=== PATIENT | female | born 1945 | race African-American/Black ===

== ENCOUNTER 2016-10-09 11:51 | Inpatient (IN) | payer MEDICARE ==
[~2016-10-09] VITALS: Ht 165.1 cm; Wt 65.8 kg
[2016-10-09] MEDS ORDERED: SITA100T PO (12:12)
[2016-10-09] MEDS ORDERED: VALS160T24 PO (12:12)
[2016-10-09] MEDS ORDERED: CARV6.252 PO (12:12)
[2016-10-09] MEDS ORDERED: QUET50TA22 PO (12:14)
[2016-10-09] MEDS ORDERED: DIVA250T6 PO (12:14)
[2016-10-09] MEDS ORDERED: DIGO125T PO (12:14)
[2016-10-09] MEDS ORDERED: AMIO100T4 PO (12:17)
[2016-10-09] MEDS ORDERED: TRAZ-147 PO (12:17)
[2016-10-09] MEDS ORDERED: AMLO2.5T PO (12:17)
[2016-10-09] MEDS ORDERED: APIX2.5T PO (12:20)
[2016-10-09] MEDS ORDERED: NITR0.4T48 SL (12:20)
[2016-10-09] MEDS ORDERED: ASPIRIN 81 MG TAB.CHEW PO ONE (12:30)
[2016-10-09] MEDS ORDERED: ASPIRIN 81 MG TAB.CHEW ONE (12:44)
--- NOTE | 2016-10-09 12:55 | NUR ---
Patient is resting comfortably on gurney while watching bedside TV. PATIENT IS PAIN FREE AT THIS TIME.
[2016-10-09 13:13] LABS: BASOPHILS % (AUTO) 0.4 % (0.0-2.0); EOSINOPHILS # (AUTO) 1.3 K/uL (0.0-0.7); HEMATOCRIT 40.6 % (37-47); HEMOGLOBIN 13.1 G/DL (12.0-16.0); LYMPHOCYTES # (AUTO) 1.8 K/UL (0.8-4.8); LYMPHOCYTES % (AUTO) 16.8 % (20.5-51.5); MEAN CORPUSCULAR HEMOGLOBIN 30.5 UUG (27.0-31.0); MEAN CORPUSCULAR HGB CONC 32 g/dL (32.0-37.0); MEAN CORPUSCULAR VOLUME 94.2 FL (81.0-99.0); MONOCYTES # (AUTO) 0.8 K/UL (0.1-1.30); MONOCYTES % (AUTO) 7.4 % (0.0-11.0); NEUTROPHILS # (AUTO) 6.6 K/UL (1.8-8.9); NEUTROPHILS % (AUTO) 63.4 % (38.5-71.5); PLATELET COUNT (AUTO) 117 K/UL (150-450); RED BLOOD CELL COUNT(AUTO) 4.31 MIL/UL (4.2-5.4); WHITE BLOOD COUNT (AUTO) 10.5 K/UL (4.0-11.2)
[2016-10-09 13:18] LABS: CARBON DIOXIDE 23 mmol/L (21-32); CHLORIDE 103 mmol/L (98-107); CREATININE 1.1 mg/dL (0.6-1.3); GLUCOSE 79 mg/dL (74-106); POTASSIUM 3.4 mmol/L (3.5-5.1); UREA NITROGEN, BLOOD 24 mg/dL (7-18)
--- NOTE | 2016-10-09 14:04 | NUR ---
Patient prefers 2 RANCH dressing to her salads, dietary office notified.
--- NOTE | 2016-10-09 14:05 | NUR ---
Patient is now eating her preferred lunch consisting of salads without tomatoes & ranch dressing, still denies chest pains at this time
--- NOTE | 2016-10-09 14:26 | NUR ---
NIDHI Brizuela is at bedside evaluating the patient.
[2016-10-09] MEDS ORDERED: FUROSEMIDE 20 MG/2 ML VIAL IV ONE (14:30)
[2016-10-09] MEDS ORDERED: ACETAMINOPHEN 325 MG TABLET PO PRN (14:45)
[2016-10-09] MEDS ORDERED: ONDANSETRON 4 MG/2 ML VIAL IV PRN (14:45)
[2016-10-09] MEDS ORDERED: NITROGLYCERIN 0.4 MG/TAB BOTTLE SL PRN (14:45)
[2016-10-09] MEDS ORDERED: MORPHINE SULFATE 2 MG/1 ML DISP.SYRIN IV PRN (14:45)
[2016-10-09] MEDS ORDERED: DEXTROSE 50% 50 ML DISP.SYRIN IV PRN (15:00)
[2016-10-09] MEDS ORDERED: POTASSIUM CHLORIDE 20 MEQ TAB.PRT.SR PO ONE (15:00)
[2016-10-09] MEDS ORDERED: INSULIN REGULAR, HUMAN 300 UNIT/3 ML VIAL SQ PRN (15:00)
[2016-10-09 15:03] VITALS: BP 135/76
[2016-10-09 15:29] LABS: BILIRUBIN,DIRECT 0.1 mg/dL (0.0-0.2); BILIRUBIN,TOTAL 0.6 mg/dL (0.2-1.0); TOTAL PROTEIN, SERUM 7.5 g/dL (6.4-8.2)
--- NOTE | 2016-10-09 16:01 | NUR ---
UPON ENTRY TO ROOM, PT VERY PLEASANT BUT POOR HISTORIAN. IN NO ACUTE DISTRESS, DENIES CHEST PAIN AT THIS TIME. DENIES BEING DIABETIC OR HAVING HIGH BLOOD PRESSURE HOWEVER HOME MEDICATIONS SHOW OTHERWISE. PACING ON THE TELE MONITOR, ORIENTED TO ROOM, BED ALARM ON, CALL LIGHT IN REACH. ADMITTING ORDERS RECEIVED, WILL CONTINUE TO MONITOR
[2016-10-09] MEDS: BLOOD SUGAR DIAGNOSTIC 1 EACH STRIP VI SCH ×2 (16:23→20:39)
[2016-10-09] MEDS ORDERED: Medication Not On Formulary EA (Apixaban (Eliquis) 2.5 MG) PO SCH (17:00)
[2016-10-09] MEDS ORDERED: APIXABAN 5 MG TABLET PO SCH (17:00)
[2016-10-09] MEDS: VALSARTAN 160 MG TABLET PO SCH (17:56)
[2016-10-09] MEDS: CARVEDILOL 6.25 MG TABLET PO SCH (17:57)
[2016-10-09] MEDS: ATORVASTATIN 40 MG TABLET PO SCH (20:05)
[2016-10-09] MEDS: DIVALPROEX 250 MG TABLET.DR PO SCH (20:05)
[2016-10-09] MEDS: FUROSEMIDE 20 MG/2 ML VIAL IV SCH (20:05)
--- NOTE | 2016-10-09 20:11 | NUR ---
PATIENT TROPONIN LEVEL O.522, PATIENT ASYMPTOMATIC, BP 112/65. HR 66, OXYGEN SAT 95%, T-88.4 O, PAGE DR. GAMEZ, AWAITING FOR RESPONSE. CONT TO MONITOR.
[2016-10-09 20:40] VITALS: BP 112/65
--- NOTE | 2016-10-09 20:40 | NUR ---
PLACE A CALL AGAIN IN EXCHANGE, SPOKE TO VERA SLATER VAHAN, NOTIFY TROPONIN IS 0.522 AND HAS NO NEW ORDER, CONTINUE TO MONITOR, PATIENT AWAKE, SKIN WARM AND DRY TO TOUCH, NO CHEST PAIN, SOB ON EXCERTION, GIVEN OXYGEN 2LITER NC, NO S/S OF DISTRESS, CONT TO MONITOR.
[2016-10-09] MEDS ORDERED: QUETIAPINE FUMARATE 50 MG PO SCH (21:00)
[2016-10-09] MEDS ORDERED: QUETIAPINE FUMARATE 25 MG TABLET PO SCH (21:00)
[2016-10-09] MEDS ORDERED: TRAZODONE 100 MG TABLET PO SCH (21:00)
[2016-10-10] VITALS: BP 125/73
--- NOTE | 2016-10-10 01:30 | NUR ---
TROPONIN LEVEL 0.482 TRENDING DOWN, DR. ESPINOZA NOTIFIED NO NEW ORDER, CONT TO MONITOR.
[2016-10-10 04:00] VITALS: BP 122/53
--- NOTE | 2016-10-10 05:52 | NUR ---
PATIENT SLEPT MOST OF THE NIGHT, NO SOB NO CHEST PAIN, RYTHM V PACING AT THIS TIME, ASSISTED WITH TOILETING, URINATE IN THE COMMODE, ASSISTED WITH [facility], NO S/S OF HYPO/HYPERGLYCEMIA NOTED, CALL LIGHT WITHIN REACH.
[2016-10-10] MEDS: BLOOD SUGAR DIAGNOSTIC 1 EACH STRIP VI SCH ×4 (05:56→21:27)
[2016-10-10 06:49] LABS: BASOPHILS % (AUTO) 0.5 % (0.0-2.0); EOSINOPHILS # (AUTO) 1.6 K/uL (0.0-0.7); EOSINOPHILS % (AUTO) 19.5 % (0.0-7.0); HEMATOCRIT 41.9 % (37-47); HEMOGLOBIN 14.1 G/DL (12.0-16.0); LYMPHOCYTES # (AUTO) 1.6 K/UL (0.8-4.8); LYMPHOCYTES % (AUTO) 19.4 % (20.5-51.5); MEAN CORPUSCULAR HEMOGLOBIN 31.6 UUG (27.0-31.0); MEAN CORPUSCULAR HGB CONC 34 g/dL (32.0-37.0); MEAN CORPUSCULAR VOLUME 93.9 FL (81.0-99.0); MONOCYTES # (AUTO) 0.8 K/UL (0.1-1.30); MONOCYTES % (AUTO) 9.1 % (0.0-11.0); NEUTROPHILS # (AUTO) 4.4 K/UL (1.8-8.9); NEUTROPHILS % (AUTO) 51.5 % (38.5-71.5); PLATELET COUNT (AUTO) 132 K/UL (150-450); RED BLOOD CELL COUNT(AUTO) 4.46 MIL/UL (4.2-5.4); WHITE BLOOD COUNT (AUTO) 8.4 K/UL (4.0-11.2)
[2016-10-10 07:17] LABS: ALANINE AMINOTRANSFERASE 18 U/L (14-59); ALKALINE PHOSPHATASE 82 U/L (50-136); ASPARTATE AMINOTRANSFERASE 19 U/L (15-37); BILIRUBIN,TOTAL 0.6 mg/dL (0.2-1.0); CARBON DIOXIDE 28 mmol/L (21-32); CHLORIDE 105 mmol/L (98-107); CREATININE 1.5 mg/dL (0.6-1.3); DIGOXIN 0.2 ng/mL (0.9-2.0); GLUCOSE 92 mg/dL (74-106); MAGNESIUM 1.8 mg/dL (1.8-2.4); PHOSPHOROUS 4.4 mg/dL (2.5-4.9); POTASSIUM 3.7 mmol/L (3.5-5.1); TOTAL PROTEIN, SERUM 7.6 g/dL (6.4-8.2); UREA NITROGEN, BLOOD 29 mg/dL (7-18)
[2016-10-10 07:22] LABS: THYROID STIMULATING HORMONE 4.865 mIU/mL (0.358-3.740)
[2016-10-10] MEDS: CARVEDILOL 6.25 MG TABLET PO SCH ×2 (08:00→17:31)
--- NOTE | 2016-10-10 08:30 | NUR ---
awake alert oriented x3 but a little slow to comprehend, denies of pain, no shortness of breath noted, Tele V paced 65, explained plan of cre- verbalized understanding, med instructions given- understood, safety measures maintained, bed alarm on and call light within reach
[2016-10-10 08:47] LABS: CHOLESTEROL 123 mg/dL (<200); HDL CHOLESTEROL 53 mg/dL (40-60); TRIGLYCERIDES 41 MG/DL (30-150)
[2016-10-10] MEDS: VALSARTAN 160 MG TABLET PO SCH ×2 (09:00→17:00)
[2016-10-10] MEDS ORDERED: Medication Not On Formulary EA (Sitagliptin Phosphate (Januvia) 100 MG) PO SCH (09:00)
[2016-10-10] MEDS: AMLODIPINE 2.5 MG TABLET PO SCH (09:00)
[2016-10-10] MEDS: FUROSEMIDE 20 MG/2 ML VIAL IV SCH (09:03)
[2016-10-10] MEDS: DIGOXIN 125 MCG TABLET PO SCH (09:03)
[2016-10-10] MEDS: LINAGLIPTIN 5 MG TABLET PO SCH (09:03)
[2016-10-10] MEDS: PANTOPRAZOLE SODIUM 40 MG TABLET.DR PO SCH (09:04)
[2016-10-10] MEDS: AMIODARONE HCL 200 MG TABLET PO SCH (09:04)
[2016-10-10] MEDS: ASPIRIN EC 81 MG TABLET.DR PO SCH (09:04)
[2016-10-10] MEDS: DIVALPROEX 250 MG TABLET.DR PO SCH ×2 (09:04→21:00)
[2016-10-10] MEDS: NICOTINE 21 MG/24HR PATCH TD SCH (09:06)
[2016-10-10 11:21] VITALS: BP 102/65
--- NOTE | 2016-10-10 12:00 | NUR ---
UP IN CHAIR -TOLERATED WELL
[2016-10-10 15:23] VITALS: BP 95/54
--- NOTE | 2016-10-10 16:00 | NUR ---
SEEN BY DR GAMEZ -
--- NOTE | 2016-10-10 18:31 | NUR ---
sitting up in chair- denies of chest pain, no shortness of breath, tele v paced- all needs attended and met, safety measures maintained, call light within reach
--- NOTE | 2016-10-10 19:20 | NUR ---
Bedside reporting with KAVEH Latham. Patient in bed, appears sleeping but easily arousable when name called. Denies any pain/discomforts at this time. Continue care as planned.
[2016-10-10 20:00] VITALS: BP 98/48
[2016-10-10] MEDS: ATORVASTATIN 40 MG TABLET PO SCH (21:00)
[2016-10-11 00:37] VITALS: BP 108/62
--- NOTE | 2016-10-11 05:24 | NUR ---
Patient verbalized concern about the scheduled procedure, claiming that she needs clarification, explanation and how does it affect her. Instructed patient that MD will explain to her.
--- NOTE | 2016-10-11 06:30 | NUR ---
Patient refused accu check at this time claiming that she is not diabetic. Charge Nurse aware.
[2016-10-11 06:43] VITALS: BP 131/79
[2016-10-11] MEDS: BLOOD SUGAR DIAGNOSTIC 1 EACH STRIP VI SCH (07:30)
--- NOTE | 2016-10-11 07:30 | NUR ---
RECIEVED PT SITTING UP AT EDGE OF THE BED. AWAKE, ALERT BUT VERY FORGETFUL, KNOWS HER NAME AND EASILY FORGETS THE PRESENT SCENARIO. 07.30 PT INSTRUCTED TO BE NOTHING BY MOUTH AFTER BREAKFAST. BLOOD CHEMISTRY NOT YET DRAWN. PT IS UP AND ABOUT. HR IS AVPACED WITH UNDERLYING ATRIAL FIBRILLATION. NO APPARENT CHEST PAINS NOTED.
[2016-10-11] MEDS: AMIODARONE HCL 200 MG TABLET PO SCH (09:00)
[2016-10-11] MEDS: DIGOXIN 125 MCG TABLET PO SCH (09:00)
--- NOTE | 2016-10-11 09:00 | NUR ---
PT'S HR IS BELOW 60. HELD AMIODARONE AND DIGOXIN MEDICATION AND DR BARRETT IS AWARE.
[2016-10-11 09:29] LABS: CARBON DIOXIDE 26 mmol/L (21-32); CHLORIDE 105 mmol/L (98-107); CREATININE 1.6 mg/dL (0.6-1.3); GLUCOSE 149 mg/dL (74-106); POTASSIUM 4.5 mmol/L (3.5-5.1); UREA NITROGEN, BLOOD 33 mg/dL (7-18)
--- NOTE | 2016-10-11 09:30 | NUR ---
PT REFUSED TO WORK WITH PHYSICAL THERAPIST. PT AMBULATES AROUND BY HERSELF.
[2016-10-11] MEDS: VALSARTAN 160 MG TABLET PO SCH ×2 (09:40→17:02)
[2016-10-11] MEDS: DIVALPROEX 250 MG TABLET.DR PO SCH ×2 (09:40→20:39)
[2016-10-11] MEDS: ASPIRIN EC 81 MG TABLET.DR PO SCH (09:40)
[2016-10-11] MEDS: AMLODIPINE 2.5 MG TABLET PO SCH (09:40)
[2016-10-11] MEDS: LINAGLIPTIN 5 MG TABLET PO SCH (09:41)
[2016-10-11] MEDS: NICOTINE 21 MG/24HR PATCH TD SCH (09:43)
[2016-10-11] MEDS: CARVEDILOL 6.25 MG TABLET PO SCH ×2 (09:48→17:02)
[2016-10-11 11:22] VITALS: BP 118/71
--- NOTE | 2016-10-11 11:30 | NUR ---
DR SCHMITZ AWARE OF THE CREATININE RESULT. CANCELLED THE HEART CATCH SCHEDULE PROCEDURE TODAY. INFORMED THE PT ABOUT THE STATUS. SEEN AND EXAMINED BY DR CUEVAS WITH NEW ORDERS.
[2016-10-11 12:10] VITALS: BP 110/51
--- NOTE | 2016-10-11 13:00 | NUR ---
PT ATE GOOD LUNCH. AWARE OF THE PLAN FOR TOMORROW. SLEEPING ON AND OFF.
[2016-10-11] MEDS: PANTOPRAZOLE SODIUM 40 MG TABLET.DR PO SCH (14:00)
--- NOTE | 2016-10-11 15:00 | NUR ---
PT IS OFF TELE PER DR GAMEZ.
[2016-10-11 15:41] VITALS: BP 117/78
--- NOTE | 2016-10-11 17:45 | NUR ---
CINDITION IS UNCHANGED. NO C/O CHEST PAINS.
[2016-10-11 20:00] VITALS: BP 101/60
--- NOTE | 2016-10-11 20:00 | NUR ---
Pt received riley in bed. AOx2 forgetful at times. Pt is pleasant upon approach. Denies any pain at this time. No acute distress noted. vital signs wnl. Bed in low and locked position, call light within reach. Will continue to monitor for safety.
[2016-10-11] MEDS: ATORVASTATIN 40 MG TABLET PO SCH (20:39)
[2016-10-12 05:00] VITALS: BP 101/65
[2016-10-12 06:48] LABS: CARBON DIOXIDE 28 mmol/L (21-32); CHLORIDE 107 mmol/L (98-107); CREATININE 1.1 mg/dL (0.6-1.3); GLUCOSE 106 mg/dL (74-106); POTASSIUM 3.7 mmol/L (3.5-5.1); UREA NITROGEN, BLOOD 27 mg/dL (7-18)
--- NOTE | 2016-10-12 07:30 | NUR ---
pt troponin is 1.284 dr frank luo notified
--- NOTE | 2016-10-12 07:30 | NUR ---
Pt received sleeping in bed. AOx2 forgetful at times. Pt is pleasant upon approach. Denies any pain at this time. No acute distress noted. vital signs wnl. Bed in low and locked position, call light within reach. Will continue to monitor for safety.
--- NOTE | 2016-10-12 08:00 | NUR ---
dr ayala notified for pt troponin level is 1.284
[2016-10-12] MEDS: VALSARTAN 160 MG TABLET PO SCH ×2 (08:13→17:00)
[2016-10-12] MEDS: PANTOPRAZOLE SODIUM 40 MG TABLET.DR PO SCH (08:13)
[2016-10-12] MEDS: ASPIRIN EC 81 MG TABLET.DR PO SCH (08:13)
[2016-10-12] MEDS: DIVALPROEX 250 MG TABLET.DR PO SCH ×2 (08:13→20:39)
[2016-10-12] MEDS: LINAGLIPTIN 5 MG TABLET PO SCH (08:13)
[2016-10-12] MEDS: DIGOXIN 125 MCG TABLET PO SCH (08:14)
[2016-10-12] MEDS: AMIODARONE HCL 200 MG TABLET PO SCH (08:14)
[2016-10-12] MEDS: AMLODIPINE 2.5 MG TABLET PO SCH (08:14)
[2016-10-12] MEDS: CARVEDILOL 6.25 MG TABLET PO SCH ×2 (08:14→18:01)
[2016-10-12] MEDS: NICOTINE 21 MG/24HR PATCH TD SCH (08:15)
[2016-10-12 11:44] VITALS: BP 110/62
--- NOTE | 2016-10-12 12:40 | NUR ---
pt troponin level is 1.469,dr ayala notified
[2016-10-12] MEDS ORDERED: HEPARIN/D5W DRIP 500 ML IV PRN (12:45)
--- NOTE | 2016-10-12 12:55 | NUR ---
rn report given to rn josr
--- NOTE | 2016-10-12 12:55 | NUR ---
RECEIVED REPORT FROM [facility], PATIENT IS IN NEED OF HEPARIN DRIP AND BOLUS. PATIENT RECEIVED IN BED AWAKE, WATCHING TV, NO EVIDENCE OF DISTRESS NOTED. HEPARIN CALCULATION PERFORMED WITH PHARMACY REP CARRIE.
[2016-10-12] MEDS ORDERED: HEPARIN SODIUM,PORCINE 5,000 UNITS/ML VIAL SQ PRN (14:00)
[2016-10-12] MEDS ORDERED: HEPARIN SODIUM,PORCINE 5,000 UNITS/ML VIAL SQ ONE ×2 (14:00)
[2016-10-12] MEDS ORDERED: HEPARIN SODIUM,PORCINE 5,000 UNITS/ML VIAL IV PRN (14:15)
[2016-10-12] MEDS ORDERED: HEPARIN SODIUM,PORCINE 5,000 UNITS/ML VIAL IV ONE (14:45)
[2016-10-12 15:38] VITALS: BP 108/61
[2016-10-12 19:00] VITALS: BP 123/60
--- NOTE | 2016-10-12 19:01 | NUR ---
PATIENT HAS BEEN FREQUENTLY AMBULATING BACK AND FORTH TO THE NURSING STATION. NO EVIDENCE OF DISTRESS NOTED IN PATIENT BESIDES SOME MILD PAIN IN IV SITE. SECOND IV SITE OBTAINED IN LEFT FOREARM.
--- NOTE | 2016-10-12 19:45 | NUR ---
Pt received sitting up in bed no acute distress noted. Pt is AOx3 but forgetful at times. Receiving heparin IV drip at 20cc/hr in right forearm, intact and patent. Lungs sounds clear with auscultation. Pt is pacing 100% on tele monitor. Explained to pt regarding ambulance slat pickler tomorrow for heart cath procedure to be done at [facility] per report. Pt is resting comfortably in bed. Call light within reach.
[2016-10-12] MEDS: ATORVASTATIN 40 MG TABLET PO SCH (20:39)
--- NOTE | 2016-10-12 22:00 | NUR ---
Lab results for PTT 95.2, per heparin protocol, heparin IV infusion will be held x1 hour and decreased by 200 units. Pt is AOx3 at this time. Observed moving about room. No s/s bleeding noted. Will continue to monitor for safety. Next scheduled PTT lab draw at 0400.
[2016-10-13 00:12] VITALS: BP 111/69
--- NOTE | 2016-10-13 00:45 | NUR ---
Pt laying in bed sleeping, easily arousable. Pt currently receiving heparin via IV at 800 units, 16cc/hr. Pt tolerating well, no s/s bleeding noted. Will continue to monitor.
[2016-10-13 04:00] VITALS: BP 111/71
--- NOTE | 2016-10-13 05:11 | NUR ---
PT PTT 35.1, PER HEPARIN PROTOCOL HEPARIN INCREASED TO 950UNITS, 19ML/HR. PT ASLEEP IN BED AT THIS TIME, PACING ON TELE MONITOR. NO ACUTE DISTRESS NOTED. WILL CONTINUE TO MONITOR FOR SAFETY.
--- NOTE | 2016-10-13 06:31 | NUR ---
PT CURRENTLY SLEEPING IN BED, EASILY AROUSABLE. RECEIVING HEPARIN 950UNITS, 19ML/HR, NO S/S BLEEDING NOTED. REMAINS ON TELE MONITOR PACING 100%. PT IN NO ACUTE DISTRESS. WILL CONTINUE TO MONITOR FOR SAFETY.
--- NOTE | 2016-10-13 07:20 | NUR ---
RECEIVED REPORT FROM DOCUMENTATION SUPERVISOR NURSE, PATIENT IN BED LIIGHTLY SLEEPING/AROUSABLE, NO EVIDENCE OF DISTRESS NOTED, BED IN LOW POSITION, SIDE RAILS UP X2.
[2016-10-13] MEDS: VALSARTAN 160 MG TABLET PO SCH (08:29)
[2016-10-13] MEDS: AMIODARONE HCL 200 MG TABLET PO SCH (08:30)
[2016-10-13] MEDS: AMLODIPINE 2.5 MG TABLET PO SCH (08:30)
[2016-10-13] MEDS: ASPIRIN EC 81 MG TABLET.DR PO SCH (08:31)
[2016-10-13] MEDS: CARVEDILOL 6.25 MG TABLET PO SCH (08:31)
[2016-10-13] MEDS: DIGOXIN 125 MCG TABLET PO SCH (08:31)
[2016-10-13] MEDS: LINAGLIPTIN 5 MG TABLET PO SCH ×2 (08:32→08:37)
[2016-10-13] MEDS: DIVALPROEX 250 MG TABLET.DR PO SCH (08:32)
[2016-10-13] MEDS: PANTOPRAZOLE SODIUM 40 MG TABLET.DR PO SCH (08:36)
[2016-10-13] MEDS: NICOTINE 21 MG/24HR PATCH TD SCH (08:36)
[2016-10-13 11:27] VITALS: BP 127/72
--- NOTE | 2016-10-13 12:00 | NUR ---
PATIENT'S LEFT ARM BECAME INFILTRATED, IV REMOVED AND WRAP PLACED. PATIENT INSTRUCTED TO ELEVATE EXTREMITY AND WARM PACK OFFERED TO PATIENT, WHICH WAS DECLINED.
--- NOTE | 2016-10-13 13:00 | NUR ---
The patient will be discharged to [facility] [ ; [address] [place] [address]] via [facility]. Spoke to the patient and her system support administrator, Azalea, who agreed with her discharge plan. Benny from [facility] confirmed that they will admit the patient today. The patient has a heart cath scheduled with Dr. Choi at [facility] on 10/17/16 at 15:00. She needs to be at [facility] labor relations supervisor at 13:00. Informed Benny from [facility]. Her RN, Ning, is aware of her discharge plan and will call the facility for the report.
[2016-10-13 15:58] VITALS: BP 105/66
--- NOTE | 2016-10-13 16:43 | NUR ---
PATIENT WAS PICKED UP BY [facility] FOR TRANSPORTATION TO [facility].
[2016-10-19] MEDS ORDERED: PANT40TA2 PO ×2 (14:01→18:15)
[2016-10-19] MEDS ORDERED: SULF1TAB48 PO (14:01)
[2016-10-19] MEDS ORDERED: ATOR20TA PO (14:01)
[2016-10-19] MEDS ORDERED: APIX5TAB PO ×2 (14:01→18:15)
[2016-10-19] MEDS ORDERED: MAGN400O6 PO (14:01)
[2016-10-19] MEDS ORDERED: VALS160T2 PO ×2 (14:01→18:17)
[2016-10-19] MEDS ORDERED: Nitroglycerin Sl SL (14:01)
== END 2016-10-13 16:30 | DRG 280 ==
LOC: ER 11:51 → TELE 14:13 → MED 10-11 13:02 → TELE 10-12 09:00
PROVIDERS: ADMIT Internal Medicine; ATTEND Internal Medicine
DX: I21.4 Non-ST elevation (NSTEMI) myocardial infarction (principal); I50.23 Acute on chronic systolic (congestive) heart failure; N17.9 Acute kidney failure, unspecified; D69.6 Thrombocytopenia, unspecified; E87.1 Hypo-osmolality and hyponatremia; I69.351 Hemiplegia and hemiparesis following cerebral infarction affecting right dominant side; I48.0 Paroxysmal atrial fibrillation; G43.909 Migraine, unspecified, not intractable, without status migrainosus; I11.0 Hypertensive heart disease with heart failure; I25.2 Old myocardial infarction; Z95.1 Presence of aortocoronary bypass graft; Z95.2 Presence of prosthetic heart valve; Z95.810 Presence of automatic (implantable) cardiac defibrillator; I25.5 Ischemic cardiomyopathy; I25.10 Atherosclerotic heart disease of native coronary artery without angina pectoris; F17.210 Nicotine dependence, cigarettes, uncomplicated; E87.6 Hypokalemia; E11.9 Type 2 diabetes mellitus without complications; Z79.01 Long term (current) use of anticoagulants; S50.12XA Contusion of left forearm, initial encounter; X58.XXXA Exposure to other specified factors, initial encounter; Y93.9 Activity, unspecified; Y92.89 Other specified places as the place of occurrence of the external cause
CPT/HCPCS: 36415; 70030-TC; 71010; 83735; 84100; 84443; 85025; 85730; 93005; 93307; 97116; 97530; A4663; J1644; J1815; J1940; J3490; J7040

== ENCOUNTER 2016-10-16 12:33 | Inpatient (IN) | payer MEDICARE ==
[~2016-10-16] VITALS: Ht 165.1 cm; Wt 65.8 kg
[~2016-10-16 12:33] MED LIST: AMIO100T4 PO; AMLO2.5T PO; APIX2.5T PO; CARV6.252 PO; DIGO125T PO; DIVA250T6 PO; NITR0.4T48 SL; QUET50TA22 PO; SITA100T PO; TRAZ-147 PO; VALS160T24 PO
[2016-10-16] MEDS ORDERED: LINA5TAB PO (13:28)
[2016-10-16] MEDS ORDERED: BISA10SU8 RC (13:28)
[2016-10-16] MEDS ORDERED: NICO1PAT25 TP (13:28)
[2016-10-16] MEDS ORDERED: ACET-2154 PO (13:28)
[2016-10-16] MEDS ORDERED: ASPI81TA31 PO (13:28)
[2016-10-16] MEDS ORDERED: CLOP75TA15 PO (13:28)
[2016-10-16] MEDS ORDERED: ACET-73 PO (13:28)
[2016-10-16] MEDS ORDERED: DIVA250T4 PO (13:28)
[2016-10-16] MEDS ORDERED: MAGN400O6 PO (13:28)
[2016-10-16] MEDS ORDERED: ATOR40TA PO (13:28)
[2016-10-16] MEDS ORDERED: PANT40TA2 PO (13:28)
[2016-10-16] MEDS ORDERED: NA P133E RC (13:28)
[2016-10-16 14:05] LABS: BASOPHILS # (AUTO) 0.1 K/uL (0.0-8.0); BASOPHILS % (AUTO) 0.6 % (0.0-2.0); EOSINOPHILS # (AUTO) 1.5 K/uL (0.0-0.7); EOSINOPHILS % (AUTO) 15.1 % (0.0-7.0); HEMATOCRIT 41.6 % (37-47); HEMOGLOBIN 13.8 G/DL (12.0-16.0); LYMPHOCYTES # (AUTO) 1.7 K/UL (0.8-4.8); MEAN CORPUSCULAR HEMOGLOBIN 31.3 UUG (27.0-31.0); MEAN CORPUSCULAR HGB CONC 33 g/dL (32.0-37.0); MEAN CORPUSCULAR VOLUME 94.5 FL (81.0-99.0); MONOCYTES # (AUTO) 0.7 K/UL (0.1-1.30); MONOCYTES % (AUTO) 6.9 % (0.0-11.0); NEUTROPHILS # (AUTO) 5.8 K/UL (1.8-8.9); NEUTROPHILS % (AUTO) 60.4 % (38.5-71.5); PLATELET COUNT (AUTO) 146 K/UL (150-450); RED BLOOD CELL COUNT(AUTO) 4.41 MIL/UL (4.2-5.4); WHITE BLOOD COUNT (AUTO) 9.8 K/UL (4.0-11.2)
[2016-10-16 14:21] LABS: CARBON DIOXIDE 27 mmol/L (21-32); CHLORIDE 105 mmol/L (98-107); CREATININE 1.3 mg/dL (0.6-1.3); GLUCOSE 122 mg/dL (74-106); UREA NITROGEN, BLOOD 40 mg/dL (7-18)
[2016-10-16 14:33] LABS: ALANINE AMINOTRANSFERASE 21 U/L (14-59); ALKALINE PHOSPHATASE 100 U/L (50-136); ASPARTATE AMINOTRANSFERASE 17 U/L (15-37); BILIRUBIN,DIRECT 0.1 mg/dL (0.0-0.2); BILIRUBIN,TOTAL 0.3 mg/dL (0.2-1.0)
[2016-10-16 16:53] VITALS: BP 144/68
[2016-10-17 05:47] VITALS: BP 140/62
[2016-10-17 06:27] LABS: BASOPHILS % (AUTO) 0.5 % (0.0-2.0); EOSINOPHILS # (AUTO) 1.7 K/uL (0.0-0.7); EOSINOPHILS % (AUTO) 18.7 % (0.0-7.0); HEMATOCRIT 39.4 % (37-47); LYMPHOCYTES # (AUTO) 2.2 K/UL (0.8-4.8); LYMPHOCYTES % (AUTO) 24.2 % (20.5-51.5); MEAN CORPUSCULAR HGB CONC 33 g/dL (32.0-37.0); MEAN CORPUSCULAR VOLUME 93.7 FL (81.0-99.0); MONOCYTES % (AUTO) 10.8 % (0.0-11.0); NEUTROPHILS % (AUTO) 45.8 % (38.5-71.5); PLATELET COUNT (AUTO) 142 K/UL (150-450); WHITE BLOOD COUNT (AUTO) 8.9 K/UL (4.0-11.2)
[2016-10-17 06:44] LABS: AMYLASE 150 U/L (25-115); CARBON DIOXIDE 26 mmol/L (21-32); CHLORIDE 109 mmol/L (98-107); CREATININE 1.2 mg/dL (0.6-1.3); GLUCOSE 83 mg/dL (74-106); LIPASE 132 U/L (73-393); MAGNESIUM 2.1 mg/dL (1.8-2.4); PHOSPHOROUS 3.8 mg/dL (2.5-4.9); POTASSIUM 3.8 mmol/L (3.5-5.1); UREA NITROGEN, BLOOD 30 mg/dL (7-18)
[2016-10-17 07:27] LABS: CHOLESTEROL 107 mg/dL (<200); HDL CHOLESTEROL 54 mg/dL (40-60); TRIGLYCERIDES 39 MG/DL (30-150)
[2016-10-17 11:21] VITALS: BP 126/66
[2016-10-17 17:00] VITALS: BP 138/76
[2016-10-17 20:00] VITALS: BP 129/76
[2016-10-18] VITALS (7 sets, daily range): BP systolic 115–134; BP diastolic 61–76
[2016-10-18 06:24] LABS: BASOPHILS # (AUTO) 0.1 K/uL (0.0-8.0); BASOPHILS % (AUTO) 0.6 % (0.0-2.0); EOSINOPHILS # (AUTO) 1.7 K/uL (0.0-0.7); EOSINOPHILS % (AUTO) 16.9 % (0.0-7.0); HEMATOCRIT 42.3 % (37-47); HEMOGLOBIN 13.8 G/DL (12.0-16.0); LYMPHOCYTES # (AUTO) 2.1 K/UL (0.8-4.8); LYMPHOCYTES % (AUTO) 20.8 % (20.5-51.5); MEAN CORPUSCULAR HEMOGLOBIN 30.8 UUG (27.0-31.0); MEAN CORPUSCULAR HGB CONC 33 g/dL (32.0-37.0); MEAN CORPUSCULAR VOLUME 94.6 FL (81.0-99.0); MONOCYTES # (AUTO) 1.2 K/UL (0.1-1.30); MONOCYTES % (AUTO) 12.6 % (0.0-11.0); NEUTROPHILS # (AUTO) 4.8 K/UL (1.8-8.9); NEUTROPHILS % (AUTO) 49.1 % (38.5-71.5); PLATELET COUNT (AUTO) 143 K/UL (150-450); RED BLOOD CELL COUNT(AUTO) 4.47 MIL/UL (4.2-5.4); WHITE BLOOD COUNT (AUTO) 9.9 K/UL (4.0-11.2)
[2016-10-18 06:39] LABS: ALANINE AMINOTRANSFERASE 20 U/L (14-59); ALKALINE PHOSPHATASE 83 U/L (50-136); ASPARTATE AMINOTRANSFERASE 25 U/L (15-37); BILIRUBIN,TOTAL 0.7 mg/dL (0.2-1.0); CARBON DIOXIDE 27 mmol/L (21-32); CHLORIDE 108 mmol/L (98-107); CREATININE 1.1 mg/dL (0.6-1.3); GLUCOSE 77 mg/dL (74-106); MAGNESIUM 2.1 mg/dL (1.8-2.4); PHOSPHOROUS 3.5 mg/dL (2.5-4.9); POTASSIUM 3.6 mmol/L (3.5-5.1); TOTAL PROTEIN, SERUM 7.5 g/dL (6.4-8.2); UREA NITROGEN, BLOOD 21 mg/dL (7-18)
[2016-10-18 22:22] LABS: *BILIRUBIN,URIN NEGATIVE (NEGATIVE); *BLOOD, URINE NEGATIVE (NEGATIVE); *COLOR,URINE YELLOW (YELLOW); *KETONES,URINE NEGATIVE (NEGATIVE); *PROTEIN,URINE NEGATIVE (NEGATIVE); *UROBILINOGEN,URINE 0.2 E.U./dl (NORMAL); LEUKOCYTE ESTERASE ,URINE 1+ (NEGATIVE); NITRITE, URINE NEGATIVE (NEGATIVE); UGLUCOSE NEGATIVE (NEGATIVE)
[2016-10-18 22:34] LABS: *CLARITY,URINE HAZY (CLEAR)
[2016-10-18 22:35] LABS: BACTERIA,URINE MODERATE /HPF (NONE SEEN); SQUAMOUS EPITHELIAL CELL,UR MANY /HPF (NONE SEEN)
[2016-10-19 04:53] VITALS: BP 108/60
[2016-10-19 10:00] VITALS: BP 111/62
[2016-10-19] MEDS ORDERED: PANT40TA2 PO ×2 (14:01→18:15)
[2016-10-19] MEDS ORDERED: MAGN400O6 PO (14:01)
[2016-10-19] MEDS ORDERED: ATOR20TA PO (14:01)
[2016-10-19] MEDS ORDERED: APIX5TAB PO ×2 (14:01→18:15)
[2016-10-19] MEDS ORDERED: VALS160T2 PO ×2 (14:01→18:17)
[2016-10-19] MEDS ORDERED: SULF1TAB48 PO (14:01)
[2016-10-19] MEDS ORDERED: Nitroglycerin Sl SL (14:01)
[2016-10-19 15:40] VITALS: BP 110/68
[2016-10-19] MEDS ORDERED: NICO1PAT25 TP (18:15)
[2016-10-19] MEDS ORDERED: ATOR40TA PO (18:15)
[2016-10-19] MEDS ORDERED: CLOP75TA15 PO (18:15)
[2016-10-19] MEDS ORDERED: NITR0.4T48 SL (18:15)
== END 2016-10-19 17:00 | DRG 280 ==
LOC: ER 12:37 → TELE 15:31 → MED 10-18 21:28
DX: I21.4 Non-ST elevation (NSTEMI) myocardial infarction (principal); I50.23 Acute on chronic systolic (congestive) heart failure; N17.9 Acute kidney failure, unspecified; D68.59 Other primary thrombophilia; F03.90 Unspecified dementia, unspecified severity, without behavioral disturbance, psychotic disturbance, mood disturbance, and anxiety; I48.0 Paroxysmal atrial fibrillation; F32.3 Major depressive disorder, single episode, severe with psychotic features; G43.909 Migraine, unspecified, not intractable, without status migrainosus; I69.351 Hemiplegia and hemiparesis following cerebral infarction affecting right dominant side; N39.0 Urinary tract infection, site not specified; I69.851 Hemiplegia and hemiparesis following other cerebrovascular disease affecting right dominant side; D69.6 Thrombocytopenia, unspecified; I11.0 Hypertensive heart disease with heart failure; E11.9 Type 2 diabetes mellitus without complications; F17.210 Nicotine dependence, cigarettes, uncomplicated; Z79.01 Long term (current) use of anticoagulants; Z95.1 Presence of aortocoronary bypass graft; Z95.810 Presence of automatic (implantable) cardiac defibrillator; F41.9 Anxiety disorder, unspecified; I25.10 Atherosclerotic heart disease of native coronary artery without angina pectoris; I25.5 Ischemic cardiomyopathy; Z79.899 Other long term (current) drug therapy
CPT/HCPCS: 36415; 70030-TC; 71010; 83690; 83735; 84100; 85025; 85610; 85730; 93005; A4663; J0696; J2060; J2270; J3490; J7050; J7060

== ENCOUNTER 2016-10-19 17:06 | Inpatient (IN) | payer MEDICARE ==
[~2016-10-19] VITALS: Ht 154.9 cm; Wt 66.7 kg
[2016-10-19 16:50] VITALS: BP 167/83
--- NOTE | 2016-10-19 17:00 | NUR ---
PT RECEIVED FROM MED SURG FLOOR AT 1645. PT IS ON 5150 EXPIRING 10/19/16 AT 1745. PT IS FORGETFUL AND DISORIENTED. ORIGINALLY PT STATED THAT IT'S 2020, BUT THEN SHE REMEMBERED THE DATE. PT DENIES THE NEED TO BE HERE. PT STATES SHE LIVES WITH HER FRIEND [place] (ACCORDING TO THE HOLD, PT WAS RESIGNING AT [facility] WHERE SHE ATTEMPTED TO [place]. PT HAS POOR INSIGHT AND NO PLAN FOR SELF CARE. PT DID NOT GIVE CONSENT TO CONTACT HER FAMILY. DR. SMITH WAS NOTIFIED. MEL WELDON WAS NOTIFIED FOR MED RECON. PT IS COMPLIANT WITH ADMISSION PROCESS.
[~2016-10-19 17:06] MED LIST changes: +ACET-2154 PO; +ACET-73 PO; -APIX2.5T PO; +APIX5TAB PO; +ASPI81TA31 PO; +ATOR20TA PO; +ATOR40TA PO; +BISA10SU8 RC; +CLOP75TA15 PO; +DIVA250T4 PO; +LINA5TAB PO; +MAGN400O6 PO; +NA P133E RC; +NICO1PAT25 TP; +Nitroglycerin Sl SL; +PANT40TA2 PO; -QUET50TA22 PO; -SITA100T PO; +SULF1TAB48 PO; -TRAZ-147 PO; +VALS160T2 PO
[2016-10-19] MEDS ORDERED: NITR0.4T48 SL (18:15)
[2016-10-19] MEDS ORDERED: ATOR40TA PO (18:15)
[2016-10-19] MEDS ORDERED: APIX5TAB PO (18:15)
[2016-10-19] MEDS ORDERED: PANT40TA2 PO (18:15)
[2016-10-19] MEDS ORDERED: NICO1PAT25 TP (18:15)
[2016-10-19] MEDS ORDERED: CLOP75TA15 PO (18:15)
[2016-10-19] MEDS ORDERED: VALS160T2 PO (18:17)
--- NOTE | 2016-10-19 18:34 | NUR ---
PT ARRIVED FROM 2ND FLOOR ON A 5150 WRITTEN ON WITH ORDERS TO BE ADMITTED TO MHU TODAY. UPON ADMISSION/REPORT FROM THE MED SURG NURSE IT WAS NOTICED THAT PT HAD NOT BEEN SEEN BY A PSYCHIATRIST DURING HER ENTIRE STAY ON MED SURG. SPOKE WITH DR XAVIER (WHO IS COMMUNICATIONS MAINTAINER TODAY) WHO DID NOT ACCEPT PT BECAUSE HE HAS ALREADY MADE ROUNDS. SPOKE WITH DR ORR WHO ALSO DID NOT ACCEPT THE PT BECAUSE HE HAD ALREADY MADE ROUNDS. SPOKE WITH DR SMITH, STATES HE WILL ACCEPT THE PT AND SEE HER TONIGHT.
--- NOTE | 2016-10-19 19:00 | NUR ---
SPOKE WITH DR GOULD, STATES HE WILL RECONCILE MEDS.
[2016-10-19 20:33] VITALS: BP 156/90
--- NOTE | 2016-10-19 22:15 | NUR ---
AT APPROXIMATELY 2200, U STAFF HEARD A LOUD SOUND COMING FROM THE DAY ROOM. UPON ENTERING THE DAY ROOM, A SITTER WAS ON BREAK IN THE DAY ROOM AND REPORTED THE Pt FELL AND HIT HER HEAD ON THE TABLE BEFORE SHE FELL TO THE GROUND. Pt DENIED THE FALL AND DENIED HITTING HER HEAD. SOFTWARE TOOLS DEVELOPER PLAYED BACK THE VIDEO PRECEDING THE FALL, AND THE VIDEO DID SHOW THE Pt LOSING HER BALANCE AND HITTING HER HEAD ON THE TABLE BEFORE FALLING TO THE GROUND. DR SMITH NOTIFIED OF INCIDENT AND ORDERED 1:[address] GOULD NOTIFIED OF INCIDENT AND STATED HE WOULD PUT IN AN ORDER FOR CT SCAN, AWAITING THE ORDER. Pt DENIES ANY PAIN OR DISCOMFORT AND VS ARE 125/74, 69, 97.9, 19, AND 97% RA, Pt BREATHING EVEN AND UNLABORED. IN NO ACUTE DISTRESS AT THIS TIME, WILL CONTINUE TO MONITOR. NURSING LEARNING DEVELOPER AND SOFTWARE TOOLS DEVELOPER AWARE OF INCIDENT.
--- NOTE | 2016-10-20 00:10 | NUR ---
Pt TRANSPORTED TO RADIOLOGY VIA W/C FOR A CT SCAN OF THE HEAD. Pt ACCOMPANIED CUSTOMER SUPPORT EXECUTIVE.
--- NOTE | 2016-10-20 00:25 | NUR ---
Pt RETURNED FROM RADIOLOGY AFTER PROCEDURE, NOW RESTING IN BED.
--- NOTE | 2016-10-20 01:15 | NUR ---
NO INJURY SUSTAINED A RESULT OF THE FALL. Pt REMAINS IN NO ACUTE DISTRESS, CONTINUING FREQUENT MONITORING. CT RESULTS: IMPRESSION: 1. No fracture. 2. No acute post-traumatic intracranial abnormality. 3. Age-indeterminate subacute or older left temporal infarct. 4. 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 5. No acute intracranial hemorrhage. 6. Nonspecific white matter changes most commonly seen with small vessel disease.
[2016-10-20 07:30] VITALS: BP 127/51
--- NOTE | 2016-10-20 07:41 | NUR ---
PT VERBALIZES THAT SHE DOESN'T WANT HER FAMILY TO BE NOTIFIED THAT SHE IS HERE. PT DOES NOT GIVE CONSENT TO GIVE OUT INFORMATION TO ANYONE. PT STATES, "I DON'T WANT ANYONE TO GET MY INFORMATION, ESPECIALLY MY SISTER"
--- NOTE | 2016-10-20 11:56 | NUR ---
Initial discharge instructions: Pt was residing at [facility] [[address] [place], [place],[address]].However, per pt's Microsystems Engineer/Friend, Azalea the pt will be discharged to [facility] [[address] [place] [address]; ] before returning to independent living.SW will speak with pt and MD regarding appropriate discharge plans.SW will form a safe and proper discharge.
[2016-10-20 15:21] VITALS: BP 93/60
[2016-10-20 20:10] VITALS: BP 123/63
[2016-10-21 07:30] VITALS: BP 98/58
[2016-10-21 17:00] VITALS: BP 113/67
[2016-10-21 20:14] VITALS: BP 115/66
--- NOTE | 2016-10-21 23:00 | NUR ---
GPS: PATIENT UNABLE TO SLEEP.OFFERED SLEEPING MEDS BUT PATIENT REFUSED.
--- NOTE | 2016-10-22 06:53 | NUR ---
GPS: REMAIN CALM AND COOPERATIVE WITH MEDS AND CARE. SLEPT 03:15 HRS THROUGH THE NIGHT.CONTINUE ON 1:1 SITTER @ BED SIDE FOR SAFETY.
[2016-10-22 07:30] VITALS: BP 107/65
[2016-10-22 15:54] VITALS: BP 112/59
--- NOTE | 2016-10-22 16:00 | NUR ---
GPS: Nursing Notes: Transfer To GPS Overflow: Patient transfer to GPS overflow , 2nd floor, room # 227, report given to nurse Chawla RN, V/S: 112/59, 97.2, 60, 18, 100%, 0/10, continue with 1:1 sitter for safety, accepting nurse Chawla, RN will continue with care.
--- NOTE | 2016-10-22 16:05 | NUR ---
TRANSFERRED FROM U TO [facility] RM 227 GEROPSYCH OVERFLOW VIA W/C ACCOMPANIED BY STAFF. ALERT ANS VERBALLY RESPONSIVE, BUT CONFUSED X3, CALMED AND COOPERATIVE. REQUIRES REDIRECTION. CONTINUE WITH 5250 WITH 1:1 SITTER.
[2016-10-22 20:32] VITALS: BP 121/66
--- NOTE | 2016-10-22 22:00 | NUR ---
Pt awake, alert, ambulating in halls. Denies any pain or discomfort. Pt currently on Eliquis with no increased bruising. 1 on 1 sitter at bedside. No acute distress at this time.
--- NOTE | 2016-10-23 01:00 | NUR ---
Pt continues to wander in and out of room. Refused Temazepam PRN medication. Sitter at bedside. No acute distress at this time. Continue to monitor.
--- NOTE | 2016-10-23 06:00 | NUR ---
Pt alert, awake, and continues to ambulatie iin and out of room. Ativan Given PRN. Pt refused morning protonix. No reports of acute chest pain at this time. Frequent redirection needed for pt care. BP 136/74. No shortness of breathe noted. Continue with lab follow ups as ordered.
--- NOTE | 2016-10-23 07:33 | NUR ---
pt up at nurses station with sitter, no needs at this time. Asked patient to go back to room so we can do bedside report and pt said "okay but I will need to talk to you later about leaving" When asked where pt needed to go, pt replied to the bank. pt back in room with sitter will continue to monitor
[2016-10-23 08:30] VITALS: BP 113/65
[2016-10-23 15:00] VITALS: BP 136/74
--- NOTE | 2016-10-23 15:29 | NUR ---
PT HAS ROOM AVAILABLE IN MHU BED 140A. REPORT GIVEN TO EFRA. ALL BELONGINGS WITH PT, TAKEN DOWN IN WHEELCHAIR TO MHU ACCOMPANIED BY GENTLEMEN WHO WERE HERE FOR COURT HEARING FOR THE PATIENT
[2016-10-23 17:31] VITALS: BP 120/68
--- NOTE | 2016-10-23 20:00 | NUR ---
Pt received walking in room. continues to walk/wander unit. Pt is AOx2, forgetful at times. No aggressive or combative behavior. 1:1 with patient at all times.
[2016-10-23 20:31] VITALS: BP 125/64
--- NOTE | 2016-10-24 00:30 | NUR ---
pt awake and somewhat agitated, pacing unit between day room and room, pt offered medication for sleep but pt refused. 1:1 sitter with pt.
--- NOTE | 2016-10-24 03:48 | NUR ---
pt sleeping at this time, no acute distress noted. 1:1 sitter with pt.
[2016-10-24 07:30] VITALS: BP 114/59
[2016-10-24 16:56] VITALS: BP 119/61
[2016-10-24 20:02] VITALS: BP 121/61
--- NOTE | 2016-10-25 06:52 | NUR ---
Pt REMAINS WITH 1:1 SITTER FOR SAFETY. Pt EASILY IRRITABLE AND IN DENIAL ABOUT HER CONDITION AND MENTAL STATUS. SELECTIVE WITH MEDICATIONS, REQUIRES PROMPTING AND ENCOURAGEMENT TO TAKE MEDS. Pt RESTLESS IN THE BEGINNING OF SHIFT AND GIVEN RESTORIL 7.5mg WITH GOOD EFFECT. Pt AWOKE AT APPROXIMATELY 0430 AND C/O INDIGESTION AND MYLANTA 30ml ADMINISTERED WITH GOOD EFFECT. NO COMBATIVE BEHAVIORS DURING SHIFT. IN NO ACUTE DISTRESS AT THIS TIME.
[2016-10-25 07:30] VITALS: BP 115/56
--- NOTE | 2016-10-25 15:00 | NUR ---
PATIENT CONTINUES TO BE CONFUSED DISORIENTED PARANOID UNABLE TO UNDERSTAND WHY SHE IS HERE HAS A SITTER FOR SAFETY WILL CONTINUE TO PROVIDE SAFE AND THERAPEUTIC ENVIRONMENT AT ALL TIMES.
[2016-10-25 20:33] VITALS: BP 103/73
--- NOTE | 2016-10-25 22:00 | NUR ---
received to care, up in kari chair, pleasant upon approach, 1;1 sitter at side, for safety. compliant with medications and staff direction. currently watching tv. no distress noted.
--- NOTE | 2016-10-26 00:40 | NUR ---
PRN restoril given for insomnia
--- NOTE | 2016-10-26 01:00 | NUR ---
assisted to bed.
--- NOTE | 2016-10-26 01:40 | NUR ---
appears to be asleep. no distress noted.
--- NOTE | 2016-10-26 06:53 | NUR ---
PT REFUSED LAB DRAW THIS AM.
--- NOTE | 2016-10-26 07:01 | NUR ---
pt did not sleep, last night. refused PRN medication for anxiety. is suspicious and paranoid. refused am protonix. 1;1 sitter remains at her side, for safety.
[2016-10-26 07:30] VITALS: BP 117/56
--- NOTE | 2016-10-26 12:00 | NUR ---
SLEPT AT LONG INTERVALS WHEN ASKED IF SHE WAS TIRED STATED THAT SHE DID NOT SLEEP FOR 2 DAYS.
[2016-10-26 20:50] VITALS: BP 114/62
--- NOTE | 2016-10-26 22:00 | NUR ---
received to care, sitting in tv room, pleasant but guarded, 1;1 sitter at side, for safety. compliant with medications and staff direction. no distress noted. will continue to monitor closely.
--- NOTE | 2016-10-26 23:02 | NUR ---
remains awake, watching tv. PRN restoril was given at this time, for insomnia. sitter remains at side at all times, for safety.
--- NOTE | 2016-10-27 00:20 | NUR ---
remains awake. currently watching tv. sitter remains at side.
--- NOTE | 2016-10-27 06:00 | NUR ---
slept 3.75 hours. continues to sleep. sitter remains at side. no distress noted.
[2016-10-27 07:30] VITALS: BP 124/70
--- NOTE | 2016-10-27 09:30 | NUR ---
PT AT BEDSIDE, REFUSED ALL AM MEDS, PT GUARDED AND ISOLATIVE, SITTER AT BEDSIDE ALL TIME. WILL CONTINUE TO MONITOR.
[2016-10-27 10:30] VITALS: BP 127/91
--- NOTE | 2016-10-27 10:30 | NUR ---
PT HAD A SHOWER, PT COMPLIED AND TOOK ALL AM MEDS, SITTER AT BEDSIDE.
--- NOTE | 2016-10-27 12:01 | NUR ---
DC Note: Patient will be discharged to [facility] [[address] [facility], [place] [address]; ] via ambulance at 1:00 pm. Spoke with Max at the facility who stated they would accept the patient today. Called patient's DPOA, Azalea [[phone]] and left a voicemail with discharge plans. Patient is aware and agreeable with discharge plans as well. Patient will follow-up with (Psychiatrist) and (Senior Sustainability Advisor) at the facility.
--- NOTE | 2016-10-27 13:30 | NUR ---
PT TOOK 1300 MED, IS AWARE SHE IS BEING DISCHARGED. NO DISTRESS, SITTER NEARBY, PT WALKING IN AND OUT OF ROOM, GOES TO DAY ROOM AND BACK TO ROOM AND THEN WALKS IN HALLWAY, NO DISTRESS NOTED.
--- NOTE | 2016-10-27 15:05 | NUR ---
CALLED [facility] AND GAVE REPORT TO RAUL ILNN, PT IS STABLE, CALM/QUIET, NO C/O PAIN. WAITING TO BE TAKEN BY AMBULANCE TO FACILITY. PT IS AWARE SHE IS GOING BACK TO FACILITY.
--- NOTE | 2016-10-27 15:21 | NUR ---
AMBULANCE IS HERE GAVE REPORT TO EMT NAMED YO. PT IS LEAVING IN STABLE CONDITION.
--- NOTE | 2016-10-27 15:30 | NUR ---
PT IS CALM, COOPERATIVE, VS ARE STABLE. PT IS FORGETFUL, BUT REDIRECTABLE. PT IS BEING DISCHARGED TO [facility]. PT IS AWARE AND WILLING TO GO. PT'S PIA JACKSON WAS NOTIFIED. ALL BELONGINGS RETURNED. PT DID NOT WANT TO SIGN PAPERWORK. REPORT WAS CALLED AND GIVEN TO KAVEH SHELBY.
== END 2016-10-27 15:30 | DRG 885 ==
LOC: GPS 17:06 → MED 10-22 15:56 → GPS 10-22 16:05 → GPSOV 10-22 16:06 → GPS 10-23 15:25
PROVIDERS: ADMIT Psychiatry & Neurology Psychiatry; ATTEND Internal Medicine
DX: F29 Unspecified psychosis not due to a substance or known physiological condition (principal); F02.80 Dementia in other diseases classified elsewhere, unspecified severity, without behavioral disturbance, psychotic disturbance, mood disturbance, and anxiety; I11.0 Hypertensive heart disease with heart failure; I50.23 Acute on chronic systolic (congestive) heart failure; D68.59 Other primary thrombophilia; I42.9 Cardiomyopathy, unspecified; D69.6 Thrombocytopenia, unspecified; F32.3 Major depressive disorder, single episode, severe with psychotic features; I48.0 Paroxysmal atrial fibrillation; I69.351 Hemiplegia and hemiparesis following cerebral infarction affecting right dominant side; G43.909 Migraine, unspecified, not intractable, without status migrainosus; G30.9 Alzheimer's disease, unspecified; E11.9 Type 2 diabetes mellitus without complications; F41.9 Anxiety disorder, unspecified; F17.210 Nicotine dependence, cigarettes, uncomplicated; Z95.1 Presence of aortocoronary bypass graft; Z95.810 Presence of automatic (implantable) cardiac defibrillator; Z95.2 Presence of prosthetic heart valve; I25.2 Old myocardial infarction
CPT/HCPCS: 36415; 70450; J0696

== ENCOUNTER 2017-03-13 20:32 | Inpatient (IN) | payer MEDICARE, MEDICAID ==
[~2017-03-13] VITALS: Ht 165.1 cm; Wt 63.5 kg
[~2017-03-13 20:32] MED LIST changes: -ACET-73 PO; -ASPI81TA31 PO; -DIVA250T4 PO; -DIVA250T6 PO; -LINA5TAB PO; +NICO-671 TP; -NICO1PAT25 TP; -VALS160T24 PO
[2017-03-13] MEDS ORDERED: IV NORMAL SALINE 1000 ML BAG IV ONE (21:30)
[2017-03-13] MEDS ORDERED: AZITHROMYCIN IV 500 MG in IV DEXTROSE 5% 250 ML IV ONE (21:30)
[2017-03-13] MEDS ORDERED: CEFTRIAXONE 1 G in IV DEXTROSE 5% 50 ML IV ONE (21:30)
[2017-03-13] MEDS ORDERED: QUET100T31 PO (21:53)
[2017-03-13] MEDS ORDERED: RIVA1.5C7 PO (21:53)
[2017-03-13] MEDS ORDERED: TEMA15CA PO (21:53)
[2017-03-13] MEDS ORDERED: LORA1TAB PO (21:53)
[2017-03-13 22:22] LABS: BASOPHILS # (AUTO) 0.1 K/uL (0.0-8.0); BASOPHILS % (AUTO) 0.8 % (0.0-2.0); EOSINOPHILS % (AUTO) 9.1 % (0.0-7.0); HEMATOCRIT 43.3 % (31.2-41.9); HEMOGLOBIN 14.6 g/dL (10.9-14.3); LYMPHOCYTES # (AUTO) 2.2 K/uL (20.0-40.0); LYMPHOCYTES % (AUTO) 19.2 % (20.5-51.5); MEAN CORPUSCULAR HEMOGLOBIN 32.5 uug (24.7-32.8); MEAN CORPUSCULAR HGB CONC 34 g/dL (32.3-35.6); MEAN CORPUSCULAR VOLUME 96.4 fL (75.5-95.3); MONOCYTES % (AUTO) 9.3 % (0.0-11.0); NEUTROPHILS # (AUTO) 6.9 K/uL (1.8-8.9); NEUTROPHILS % (AUTO) 61.6 % (38.5-71.5); PLATELET COUNT (AUTO) 129 K/uL (179-408); RED BLOOD CELL COUNT(AUTO) 4.49 MIL/uL (3.63-4.92); WHITE BLOOD COUNT (AUTO) 11.2 K/uL (3.8-11.8)
--- NOTE | 2017-03-13 22:30 | NUR ---
PT IS IN BED. PT IS A&OX4. PT IS BREATHING IS REGULAR AND UNLABORED. BED IN LOWEST POSITION. PT SAYS SHE'S HUNGRY. PT IS OFFERED DINNER TRAY.
[2017-03-13 22:32] LABS: CARBON DIOXIDE 26 mmol/L (21-32); CHLORIDE 105 mmol/L (98-107); CREATININE 1.1 mg/dL (0.6-1.3); GLUCOSE 116 mg/dL (74-106); POTASSIUM 3.7 mmol/L (3.5-5.1); UREA NITROGEN, BLOOD 23 mg/dL (7-18)
[2017-03-13 22:44] LABS: ALANINE AMINOTRANSFERASE 16 U/L (14-59); ALKALINE PHOSPHATASE 92 U/L (50-136); ASPARTATE AMINOTRANSFERASE 17 U/L (15-37); BILIRUBIN,DIRECT 0.1 mg/dL (0.0-0.2); BILIRUBIN,TOTAL 0.4 mg/dL (0.2-1.0); TOTAL PROTEIN, SERUM 8.3 g/dL (6.4-8.2)
[2017-03-13] MEDS ORDERED: AZITHROMYCIN 500 MG VIAL IV ONE (22:50)
[2017-03-14] VITALS (8 sets, daily range): BP systolic 123–145; BP diastolic 67–80
--- NOTE | 2017-03-14 00:35 | NUR ---
PT IS IN BED. PT IS RECIEVING IV FLUIDS. PT IS OFFERED BED SNYDER.
[2017-03-14] MEDS ORDERED: CEFTRIAXONE 1 G VIAL ONE (01:21)
[2017-03-14 01:30] LABS: *BILIRUBIN,URIN NEGATIVE (NEGATIVE); *BLOOD, URINE NEGATIVE (NEGATIVE); *CLARITY,URINE SLIGHTLY CLOUDY (CLEAR); *COLOR,URINE YELLOW (YELLOW); *KETONES,URINE NEGATIVE (NEGATIVE); *PROTEIN,URINE TRACE (NEGATIVE); LEUKOCYTE ESTERASE ,URINE NEGATIVE (NEGATIVE); NITRITE, URINE NEGATIVE (NEGATIVE); UGLUCOSE NEGATIVE (NEGATIVE)
[2017-03-14 01:46] LABS: BACTERIA,URINE FEW /HPF (NONE SEEN); RBC,URINE 0-3 /HPF (0-3); SQUAMOUS EPITHELIAL CELL,UR MODERATE /HPF (NONE SEEN); WBC,URINE 0-3 /HPF (0-3)
[2017-03-14 01:47] LABS: MUCUS,URINE FEW /LPF (0-FEW)
--- NOTE | 2017-03-14 02:03 | NUR ---
Pt. admitted to TELE, under care of Dr. Giraldo Belongs List completed
--- NOTE | 2017-03-14 02:20 | NUR ---
RECEIVED PATIENT VIA GURNEY FROM ER. PATIENT IS A/O X3. FORGETFUL AT TIMES. DENIES ANY CHEST PAIN OR DISCOMFORT. NO RESP. DISTRESS NOTED. PLACED ON TELE ORDERED, SR WITH UNDERLYING PACE. VSS. H/L INFILTRATED UPON ADMISSION TO FLOOR. REMOVED. WILL RESTART. ORIENTED PATIENT TO ROOM AND CALL LIGHT. ALL NEEDS ATTENDED. WILL CONTINUE TO MONITOR AND ASSESS. PATIENT IS TO BE ADMITTED UNDER DR. GAVIN REIS. FLOOR HAS ALREADY CALLED FOR ADMISSION ORDERS. WAITING FOR CALL BACK. ALL NEEDS ATTENDED. WILL CONTINUE TO MONITOR.
--- NOTE | 2017-03-14 03:30 | NUR ---
NO CALL BACK FROM DR. REIS. CELLOPHANE WORKER NOTIFIED. CALLED OUT TO THE EXCHANGE TO DR. BARAJAS FOR ADMISSION ORDERS.
--- NOTE | 2017-03-14 06:55 | NUR ---
PATIENT ASLEEP IN BED. VSS. ON TELE V-PACING. DENIES CHEST PAIN. BED ALARM ON. CALL LIGHT IN REACH. ALL NEEDS ATTENDED.
--- NOTE | 2017-03-14 07:45 | NUR ---
RECEIVED SHIFT REPORT FROM DAY SHIFT NURSE. PATIENT RESTING COMFORTABLY IN BED AT THIS TIME. AWAITING ORDERS TO BE PLACED BY MD. NO S/S OF DISTRESS, STABLE CONDITION. BED ALARM ON, CALL LIGHT WITHIN REACH, BED IN LOCKED/LOW POSITION. SAFETY/COMFORT WILL BE PROVIDED.
[2017-03-14] MEDS ORDERED: LORAZEPAM 1 MG TABLET PO SCH (08:15)
[2017-03-14] MEDS ORDERED: NITROGLYCERIN 0.4 MG/TAB BOTTLE SL PRN ×2 (08:15)
[2017-03-14] MEDS ORDERED: ACETAMINOPHEN 325 MG TABLET PO PRN (08:30)
[2017-03-14] MEDS ORDERED: Z GUARD REMEDY PASTE 57 GM TUBE TOP PRN (08:30)
[2017-03-14] MEDS ORDERED: ONDANSETRON 4 MG/2 ML VIAL IV PRN (08:30)
[2017-03-14] MEDS ORDERED: NICOTINE 14 MG/24HR PATCH TD SCH (09:00)
[2017-03-14] MEDS: AMIODARONE HCL 200 MG TABLET PO SCH ×2 (09:00→10:41)
[2017-03-14] MEDS: CARVEDILOL 6.25 MG TABLET PO SCH ×3 (09:00→17:30)
[2017-03-14] MEDS: BISACODYL 10 MG SUPP.RECT RC SCH (09:00)
[2017-03-14] MEDS: DIGOXIN 125 MCG TABLET PO SCH ×2 (09:00→10:41)
[2017-03-14] MEDS: RIVASTIGMINE TARTRATE 1.5 MG CAPSULE PO SCH ×2 (09:21→17:30)
[2017-03-14] MEDS: VALSARTAN 160 MG TABLET PO SCH ×2 (09:21→20:43)
[2017-03-14] MEDS: AMLODIPINE 2.5 MG TABLET PO SCH (09:21)
--- NOTE | 2017-03-14 09:24 | NUR ---
NON-ADMINISTRATION: CARVEDILOL 160 MG PO AMIODARONE 200 MG PT DIGOXIN 125 MCG PO PT'S HEART RATE = 57
--- NOTE | 2017-03-14 09:42 | NUR ---
NON-ADMINISTRATION: NICOTINE PATCH - WRONG DOSE
--- NOTE | 2017-03-14 10:25 | NUR ---
CRITICAL LAB VALUE - TROPONIN 1.960 READ-BACK COMPLETED TO ISABELITA. IVERSON NOT CONTACTED - TRENDING IN EXPECTED DIRECTION.
[2017-03-14] MEDS: CLOPIDOGREL 75 MG TABLET PO SCH (10:43)
--- NOTE | 2017-03-14 15:44 | NUR ---
CRITICAL LAB VALUE - TROPONIN 1.736 READ-BACK COMPLETED TO LIANA AT THIS TIME. NOT CONTACTED - TRENDING IN EXPECTED DIRECTION.
--- NOTE | 2017-03-14 18:10 | NUR ---
PATIENT RESTING COMFORTABLY IN BED AT THIS TIME AFTER FINISHING DINNER. PATIENT IS A/OX2 WITH INTERMITTENT TIMES OF CONFUSION. PATIENT IS ALSO FORGETFUL. AMBULATORY WITH ASSISTANCE TO THE RESTROOM. UNDERSTANDS HOW TO USE CALL LIGHT WHEN ASSISTANCE IS NEEDED. BED IN LOCKED/LOW POSITION, SIDE RAILS UP X2, BED ALARM ON, CALL LIGHT WITHIN REACH. STABLE CONDITION, NO S/S OF DISTRESS. NO COMPLAINTS OF PAIN EXPRESSED BY PATIENT. AWAITING ELIQUIS TO BE DELIVERED BY PHARMACY. ATTEMPTED TO CALL PATIENT'S CONTACTS IN THE CHART TO CONFIRM PATIENT'S MEDICATION (ELIQUIS) BUT WAS UNABLE TO GET IN TOUCH. PATIENT DOES NOT REMEMBER 'JERZY'S' PHONE NUMBER (CAREGIVER).
[2017-03-14] MEDS: ATORVASTATIN 40 MG TABLET PO SCH (20:43)
[2017-03-14] MEDS: APIXABAN 5 MG TABLET PO SCH (20:43)
[2017-03-14] MEDS: TEMAZEPAM 15 MG CAPSULE PO SCH (20:44)
[2017-03-14] MEDS ORDERED: QUETIAPINE FUMARATE 100 MG TABLET PO SCH (21:00)
[2017-03-15] VITALS: BP 150/78
[2017-03-15 04:00] VITALS: BP 145/75
[2017-03-15] MEDS: PANTOPRAZOLE SODIUM 40 MG TABLET.DR PO SCH (06:02)
--- NOTE | 2017-03-15 07:00 | NUR ---
Patient fairly rested, no acute resp. distress. Assisted w/ needs, V-paced on the monitor.
[2017-03-15 07:21] LABS: BASOPHILS # (AUTO) 0.1 K/uL (0.0-8.0); BASOPHILS % (AUTO) 0.7 % (0.0-2.0); EOSINOPHILS # (AUTO) 1.3 K/uL (0.0-0.7); EOSINOPHILS % (AUTO) 11.7 % (0.0-7.0); HEMATOCRIT 39.8 % (31.2-41.9); HEMOGLOBIN 13.3 g/dL (10.9-14.3); LYMPHOCYTES % (AUTO) 17.9 % (20.5-51.5); MEAN CORPUSCULAR HEMOGLOBIN 32.3 uug (24.7-32.8); MEAN CORPUSCULAR HGB CONC 33 g/dL (32.3-35.6); MONOCYTES # (AUTO) 1.5 K/uL (2.0-10.0); MONOCYTES % (AUTO) 13.4 % (0.0-11.0); NEUTROPHILS # (AUTO) 6.2 K/uL (1.8-8.9); NEUTROPHILS % (AUTO) 56.3 % (38.5-71.5); PLATELET COUNT (AUTO) 125 K/uL (179-408)
--- NOTE | 2017-03-15 07:32 | NUR ---
RECEIVED SHIFT REPORT FROM SPRINKLER DRIVER NURSE. PATIENT RESTING COMFORTABLY IN BED AT THIS TIME. NO S/S OF DISTRESS, STABLE CONDITION. AMBULATORY WITH ASSISTANCE. BED IN LOCKED/LOW POSITION, SIDE RAILS UP X2, BED ALARM ON, CALL LIGHT WITHIN REACH. SAFETY/ COMFORT WILL BE PROVIDED.
[2017-03-15 07:46] LABS: ALANINE AMINOTRANSFERASE 23 U/L (14-59); ALKALINE PHOSPHATASE 74 U/L (50-136); ASPARTATE AMINOTRANSFERASE 16 U/L (15-37); BILIRUBIN,TOTAL 0.4 mg/dL (0.2-1.0); CARBON DIOXIDE 25 mmol/L (21-32); CHLORIDE 107 mmol/L (98-107); CHOLESTEROL 144 mg/dL (<200); GLUCOSE 100 mg/dL (74-106); HDL CHOLESTEROL 66 mg/dL (40-60); MAGNESIUM 1.9 mg/dL (1.8-2.4); PHOSPHOROUS 2.6 mg/dL (2.5-4.9); POTASSIUM 3.6 mmol/L (3.5-5.1); TOTAL PROTEIN, SERUM 7.2 g/dL (6.4-8.2); TRIGLYCERIDES 57 MG/DL (30-150); UREA NITROGEN, BLOOD 23 mg/dL (7-18)
[2017-03-15 07:50] LABS: THYROID STIMULATING HORMONE 7.384 mIU/mL (0.358-3.740)
[2017-03-15] MEDS: NICOTINE 21 MG/24HR PATCH TD SCH (08:20)
[2017-03-15] MEDS: BISACODYL 10 MG SUPP.RECT RC SCH (08:21)
[2017-03-15] MEDS: AMIODARONE HCL 200 MG TABLET PO SCH (08:22)
[2017-03-15] MEDS: DIGOXIN 125 MCG TABLET PO SCH (08:22)
[2017-03-15] MEDS: VALSARTAN 160 MG TABLET PO SCH ×2 (08:22→20:27)
[2017-03-15] MEDS: CARVEDILOL 6.25 MG TABLET PO SCH ×2 (08:23→17:15)
[2017-03-15] MEDS: RIVASTIGMINE TARTRATE 1.5 MG CAPSULE PO SCH ×2 (08:23→17:15)
[2017-03-15] MEDS: AMLODIPINE 2.5 MG TABLET PO SCH (08:23)
[2017-03-15] MEDS: APIXABAN 5 MG TABLET PO SCH ×2 (08:26→17:13)
[2017-03-15] MEDS: CLOPIDOGREL 75 MG TABLET PO SCH (08:26)
--- NOTE | 2017-03-15 08:30 | NUR ---
NON-ADMINISTRATION: DULCOLAX - PATIENT VERBALIZED, "I DON'T WANT THAT, I DON'T NEED THAT." EDUCATED PATIENT THE IMPORTANCE OF HAVE A BOWEL MOVEMENT. PATIENT HAS NOT HAD A BOWEL MOVEMENT IN TWO-THREE DAYS. PATIENT VERBALIZED, "DON'T WORRY, IM OK." NON-ADMINISTRATION: NICOTINE PATCH 21 MG. PATIENT VERBALIZED: "I DON'T NEED THAT EITHER."
[2017-03-15 11:58] VITALS: BP 144/65
--- NOTE | 2017-03-15 14:12 | NUR ---
INFORMED BY PATIENT TO NOT ALLOW TWO PEOPLE TO VISIT PATIENT NAMED, HANY. ASKED PATIENT THE REASON WHY AND PATIENT VERBALIZED: "THESE TWO PEOPLE HAVE TAKEN ALL MY MONEY. I HAD $16,500 IN MY BANK AND THEY TOOK IT ALL. THEY TOOK MY SOCIAL SECURITY MONEY." INFORMED SITUATION TO MEDICAL ASSISTANT OB GYN. INFORMED SECURITY TO NOT ALLOW THERESA AND JERZY INTO THE HOSPITAL IF THEY TRY TO VISIT THE PATIENT.
[2017-03-15 15:55] VITALS: BP 117/75
--- NOTE | 2017-03-15 18:28 | NUR ---
PATIENT IS IN STABLE CONDITION AT THIS TIME, NO S/S OF DISTRESS, WITH VITAL SIGNS STABLE. PATIENT CONTINUOUSLY AMBULATED WITH WALKER IN THE FLOOR HALLWAYS. PATIENT'S GAIT IS STEADY WITH WALKER. INFORMED PATIENT TO STAY IN THE ROOM TO PREVENT ANY FALLS FROM OCCURRING. PATIENT UNDERSTOOD AND COMPLIED. IV LEAKING, CHANGED TO RIGHT FOREARM GAUGE #22. BED IN LOCKED/LOW POSITION, SIDE RAILS UP X2, BED ALARM ON, CALL LIGHT WITHIN REACH. SAFETY/COMFORT PROVIDED.
[2017-03-15 20:00] VITALS: BP 142/75
[2017-03-15] MEDS: TEMAZEPAM 15 MG CAPSULE PO SCH (20:27)
[2017-03-15] MEDS: ATORVASTATIN 40 MG TABLET PO SCH (20:27)
[2017-03-15 23:53] VITALS: BP 143/72
[2017-03-16 04:00] VITALS: BP 135/73
[2017-03-16] MEDS: PANTOPRAZOLE SODIUM 40 MG TABLET.DR PO SCH (05:50)
[2017-03-16 06:44] LABS: BASOPHILS # (AUTO) 0.1 K/uL (0.0-8.0); BASOPHILS % (AUTO) 0.6 % (0.0-2.0); EOSINOPHILS # (AUTO) 1.1 K/uL (0.0-0.7); EOSINOPHILS % (AUTO) 9.4 % (0.0-7.0); HEMATOCRIT 43.2 % (31.2-41.9); HEMOGLOBIN 14.3 g/dL (10.9-14.3); LYMPHOCYTES # (AUTO) 2.6 K/uL (20.0-40.0); LYMPHOCYTES % (AUTO) 22.9 % (20.5-51.5); MEAN CORPUSCULAR HEMOGLOBIN 31.9 uug (24.7-32.8); MEAN CORPUSCULAR HGB CONC 33 g/dL (32.3-35.6); MEAN CORPUSCULAR VOLUME 96.3 fL (75.5-95.3); MONOCYTES # (AUTO) 1.1 K/uL (2.0-10.0); MONOCYTES % (AUTO) 10.1 % (0.0-11.0); NEUTROPHILS # (AUTO) 6.4 K/uL (1.8-8.9); PLATELET COUNT (AUTO) 140 K/uL (179-408); RED BLOOD CELL COUNT(AUTO) 4.48 MIL/uL (3.63-4.92); WHITE BLOOD COUNT (AUTO) 11.2 K/uL (3.8-11.8)
[2017-03-16 06:49] LABS: CARBON DIOXIDE 25 mmol/L (21-32); CHLORIDE 104 mmol/L (98-107); CREATININE 1.1 mg/dL (0.6-1.3); GLUCOSE 104 mg/dL (74-106); MAGNESIUM 2.1 mg/dL (1.8-2.4); POTASSIUM 3.9 mmol/L (3.5-5.1); UREA NITROGEN, BLOOD 27 mg/dL (7-18)
[2017-03-16 08:00] VITALS: BP 148/72
[2017-03-16] MEDS: RIVASTIGMINE TARTRATE 1.5 MG CAPSULE PO SCH (08:49)
[2017-03-16] MEDS: VALSARTAN 160 MG TABLET PO SCH (08:50)
[2017-03-16] MEDS: DIGOXIN 125 MCG TABLET PO SCH (08:51)
[2017-03-16] MEDS: AMIODARONE HCL 200 MG TABLET PO SCH (08:51)
[2017-03-16] MEDS: AMLODIPINE 2.5 MG TABLET PO SCH (08:51)
[2017-03-16] MEDS: CARVEDILOL 6.25 MG TABLET PO SCH (08:52)
[2017-03-16] MEDS: APIXABAN 5 MG TABLET PO SCH (08:52)
[2017-03-16] MEDS: CLOPIDOGREL 75 MG TABLET PO SCH (08:53)
[2017-03-16] MEDS: BISACODYL 10 MG SUPP.RECT RC SCH (08:54)
[2017-03-16] MEDS: NICOTINE 21 MG/24HR PATCH TD SCH (08:54)
[2017-03-16] MEDS ORDERED: AZIT500T PO (11:29)
[2017-03-16] MEDS ORDERED: AZIT500V8 IV (11:49)
[2017-03-16 11:54] VITALS: BP 115/69
[2017-03-16 16:00] VITALS: BP 129/75
--- NOTE | 2017-03-16 17:50 | NUR ---
PATIENT DISCHARGED AT THIS TIME THROUGH AMBULANCE. GOING TO [facility]. STABLE CONDITION, NO S/S OF DISTRESS. VITALS STABLE. BELONGINGS CHECKLIST COMPLETED, SIGNED BY PATIENT, MEDICATIONS FROM PHARMACY GIVEN BACK TO PATIENT. TELEMETRY BOX DCED AND GIVEN TO APARTMENT RENTAL AGENT. IV LEFT IN PLACE FOR ANTIBIOTICS THERAPY AT [facility]. ID BAND TAKEN OFF.
== END 2017-03-16 17:55 | DRG 280 ==
LOC: ER 20:34 → TELE 23:00
PROVIDERS: ADMIT Nurse Practitioner Acute Care; ATTEND Internal Medicine
DX: I21.4 Non-ST elevation (NSTEMI) myocardial infarction (principal); J18.9 Pneumonia, unspecified organism; I69.351 Hemiplegia and hemiparesis following cerebral infarction affecting right dominant side; I42.0 Dilated cardiomyopathy; I48.0 Paroxysmal atrial fibrillation; I48.2 Chronic atrial fibrillation; F03.90 Unspecified dementia, unspecified severity, without behavioral disturbance, psychotic disturbance, mood disturbance, and anxiety; Z95.1 Presence of aortocoronary bypass graft; Z95.810 Presence of automatic (implantable) cardiac defibrillator; I25.2 Old myocardial infarction; I25.10 Atherosclerotic heart disease of native coronary artery without angina pectoris; E78.5 Hyperlipidemia, unspecified; Z79.02 Long term (current) use of antithrombotics/antiplatelets; Z79.01 Long term (current) use of anticoagulants; Z79.899 Other long term (current) drug therapy; F17.210 Nicotine dependence, cigarettes, uncomplicated; E11.9 Type 2 diabetes mellitus without complications; I49.3 Ventricular premature depolarization; I34.0 Nonrheumatic mitral (valve) insufficiency; Z95.3 Presence of xenogenic heart valve; F41.8 Other specified anxiety disorders
CPT/HCPCS: 36415; 70030-TC; 71045; 83605; 83735; 84100; 84443; 85025; 85730; 87040; 87086; 87400; 93005; 93307; A4663; J0456; J0696; J7030; J7060